=== PATIENT | male | born 1970 | race Caucasian/White ===

== ENCOUNTER 2017-11-03 13:55 | Outpatient (CLI) | payer OTHER ==
[2017-11-03 13:30] VITALS: BP 138/80
[2017-11-03] MEDS ORDERED: FUROSEMIDE40 MG ORAL (16:34)
[2017-11-03] MEDS ORDERED: SPIRONOLACTONE50 MG ORAL (16:34)
[2017-11-03] MEDS ORDERED: OMEPRAZOLE40 M1 ORAL (16:34)
[2017-11-03] MEDS ORDERED: insulin (16:34)
--- NOTE | 2017-11-04 13:29 | GI Initial Consult Note ---
History of Present Illness General Date patient seen: Nov 03, 2017 Time patient seen: 13:25 Referring physician: SCOTT Reason for Consultation: RECTAL BLEED Present Illness HPI 46 year old male patient with history of ETOH cirrhosis, hx of esophageal varices s/p banding and diabetes mellitus. He presents today with c/o of possible rectal bleed, noted dark stools. Denies any abdominal pain, N/V/D. Denies any unintentional weight loss or changes in dietary habits. No signs of abuse or neglect. Patient is not fall risk. No noted history of colonoscopy. Home Meds Reported Medications Spironolactone* (ALDACTONE*) 50 Mg Tablet, ORAL DAILY, TAB 11/03/17 [insulin ] No Conflict Check 11/03/17 Furosemide* (LASIX*) 40 Mg Tablet, ORAL DAILY, TAB 11/03/17 Omeprazole (OMEPRAZOLE) 40 Mg Capsule.dr, 40 MG ORAL DAILY, CAP 11/03/17 Med list reviewed/reconciled: Yes Allergies: Coded Allergies: No Known Allergies (Verified , 02/16/11) Patient History History Provided By: Patient, Medical Record PMH Narrative ETOH cirrhosis EV s/p banding DM GERD Past Surgical History: None Pertinent Family History: none Social History: Denies: smoking, alcohol use, drug use, other Review of Systems All Other Systems: negative except mentioned in HPI Physical Exam Vital Signs Date Time Temp Pulse Resp B/P (MAP) Pulse Ox O2 Delivery O2 Flow Rate FiO2 11/03/17 13:30 98.1 79 138/80 100 98.1 Sp02 EP Interpretation: reviewed, normal General Appearance: well appearing, no apparent distress, alert Head: normocephalic EENT: PERRL/EOMI, normal ENT inspection Neck: supple Respiratory: normal breath sounds, no respiratory distress Cardiovascular: normal rate Gastrointestinal: normal inspection, non tender, soft, normal bowel sounds, non -distended Rectal: deferred Genitourinary: deferred Musculoskeletal: normal inspection, back normal Neurologic: normal inspection, alert, oriented x3, responsive Psychiatric: normal inspection, judgement/insight normal, memory normal Skin: normal inspection, normal color, no rash, warm/dry, palpation normal, well hydrated Lymphatic: normal inspection, no adenopathy GI: Plan Problems: (1) Cirrhosis (2) Esophageal varices (3) GERD (gastroesophageal reflux disease) (4) Rectal bleed (5) Diabetes mellitus Plan EGD/colonoscopy to be scheduled pending prior authorization, will contact patient. - CLD & (Nulytely/Suprep/Movi-Prep) prep instructions given and acknowledged by patient. - NPO @ [place] day prior procedure explained. Seen with Dr. Prakash. Thank you for this patient referral. The patient was seen and examined at bedside and all new and available data was reviewed in the patients chart. I agree with the above findings, impression and plan. (Patient seen earlier today. Signature stamp does not reflect patient encounter time.). - MD Nanci AhujaSamara-Carlos FULFILLMENT ASSOCIATE Nov 04, 2017 13:29
== END 2017-11-03 14:25 | disposition home or self-care (01) ==
LOC: PAN 13:55
DX: K62.5 Hemorrhage of anus and rectum (principal); K70.30 Alcoholic cirrhosis of liver without ascites; I85.00 Esophageal varices without bleeding; K21.9 Gastro-esophageal reflux disease without esophagitis; E11.9 Type 2 diabetes mellitus without complications; Z98.84 Bariatric surgery status
CPT/HCPCS: 99202

== ENCOUNTER 2018-04-14 09:22 | Day surgery (SDC) | payer OTHER ==
[~2018-04-14] VITALS: Ht 165.1 cm; Wt 72.6 kg
[2018-04-14] VITALS (9 sets, daily range): BP systolic 106–143; BP diastolic 68–84
[~2018-04-14 09:22] MED LIST: FUROSEMIDE40 MG ORAL; OMEPRAZOLE40 M1 ORAL; SPIRONOLACTONE50 MG ORAL; insulin
[2018-04-14] MEDS ORDERED: basaglar SQ (10:17)
[2018-04-14] MEDS ORDERED: NOVOLOG100 UNITS1 SQ (10:17)
--- NOTE | 2018-04-14 11:09 | Pre-Procedure Note/Attestation ---
Pre-Procedure Note/Attestation Complete Prior to Procedure Planned Procedure: not applicable Procedure Narrative: egd/eus Indications for Procedure Pre-Operative Diagnosis: gastric nodule Attestation I attest that I discussed the nature of the procedure; its benefits; risks and complications; and alternatives (and the risks and benefits of such alternatives ), prior to the procedure, with the patient (or the patient's legal employee relations representative). I attest that, if there was a reasonable possibility of needing a blood transfusion, the patient (or the patient's legal employee relations representative) was given the [facility] standardized written summary, pursuant to the Rufus Duglas Blood Safety Act ([place] Health and Safety Code # 1645, as amended). I attest that I re-evaluated the patient just prior to the surgery and that there has been no change in the patient's H&P, except as documented below: Brayden Prakash MD Apr 14, 2018 11:09
--- NOTE | 2018-04-14 11:09 | Short Stay Surgery H&P ---
History of Present Illness History of Present Illness Chief Complaint see office consult note HPI Brown Moraes is a 47 year old male who was admitted on for Gastric Nodule Patient History Allergies: Coded Allergies: No Known Allergies (Verified , 04/14/18) Medication History Scheduled Furosemide* (Lasix*), Unknown Dose ORAL DAILY, (Reported) Insulin Aspart (Novolog Flexpen), 12 UNITS SQ BEFORE MEALS, (Reported) Omeprazole (Omeprazole), 40 MG ORAL DAILY, (Reported) Spironolactone* (Aldactone*), Unknown Dose ORAL DAILY, (Reported) [basaglar], 42 UNITS SQ BEDTIME, (Reported) Miscellaneous Medications [insulin ], (Reported) Physical Exam Vital Signs Last Vital Signs Date Time Temp Pulse Resp B/P (MAP) Pulse Ox O2 Delivery O2 Flow Rate FiO2 04/14/18 10:35 Room Air 04/14/18 10:07 98.7 70 18 143/84 100 Plan Attestation Are the patient's medical conditions optimized for surgery? Brayden Prakash MD Apr 14, 2018 11:09
[2018-04-14 11:13] LABS: HEMATOCRIT 43.5 % (42.0-52.0); HEMOGLOBIN 14.7 G/DL (14.2-18.0); MEAN CORPUSCULAR VOLUME 87 FL (80-99); PLATELET COUNT 41 K/UL (150-450); RED BLOOD COUNT 4.97 M/UL (4.70-6.10); RED CELL DISTRIBUTION WIDTH 14.1 % (11.6-14.8); WHITE BLOOD COUNT 2.6 K/UL (4.8-10.8)
[2018-04-14 11:24] LABS: ANION GAP 9 mmol/L (5-15); BLOOD UREA NITROGEN 10 mg/dL (7-18); CALCIUM 8.5 MG/DL (8.5-10.1); CARBON DIOXIDE 25 MMOL/L (21-32); CHLORIDE 108 MMOL/L (98-107); CREATININE 0.8 MG/DL (0.55-1.30); POTASSIUM 3.4 MMOL/L (3.5-5.1); SODIUM 142 MMOL/L (136-145)
[2018-04-14] MEDS ORDERED: Lidocaine 1% MPF 10mg/ml 5ml ONE (11:30)
[2018-04-14] MEDS ORDERED: Propofol 200mg/20ml IV ONE (11:30)
[2018-04-14] MEDS ORDERED: LR 1000ml ONE (11:30)
[2018-04-14 11:36] LABS: ALANINE AMINOTRANSFERASE 43 U/L (12-78); ALBUMIN 3.2 G/DL (3.4-5.0); ALBUMIN/GLOBULIN RATIO 0.9 (1.0-2.7); ALKALINE PHOSPHATASE 100 U/L (46-116); ASPARTATE AMINO TRANSFERASE 41 U/L (15-37); BILIRUBIN,TOTAL 2.5 MG/DL (0.2-1.0)
[2018-04-14 11:46] LABS: BILIRUBIN,DIRECT 0.6 MG/DL (0.0-0.3)
--- NOTE | 2018-04-14 12:08 | Immediate Post-Op Evaluation ---
Immediate Post-Op Evalulation Immediate Post-Op Evalulation Procedure: EGD/EUS Date of Evaluation: Apr 14, 2018 Time of Evaluation: 12:08 IV Fluids: 300 Blood Pressure Systolic: 117 Blood Pressure Diastolic: 62 Pulse Rate: 81 Respiratory Rate: 14 O2 Sat by Pulse Oximetry: 99 Temperature (Fahrenheit): 97.1 Nausea: No Vomiting: No Complications none Patient Status: awake, reacts, patent Hydration Status: adequate Drug: none Keke Whalen CRNA Apr 14, 2018 12:08
--- NOTE | 2018-04-14 12:11 | Anethesia Preoperative Eval ---
Anesthesia Pre-op PMH/ROS General Date of Evaluation: Apr 14, 2018 Time of Evaluation: 11:30 Anesthesiologist: ya ASA Score: ASA 3 Mallampati Score Class I : Soft palate, uvula, fauces, pillars visible Class II: Soft palate, uvula, fauces visible Class III: Soft palate, base of uvula visible Class IV: Only hard plate visible Mallampati Classification: Class III Surgeon: rayne Diagnosis: gastric nodule Surgical Procedure: EUS Anesthesia History: none Social History: alcohol use Family History: no anesthesia problems Allergies: Coded Allergies: No Known Allergies (Verified , 04/14/18) Medications: see eMAR Patient NPO?: Yes NPO Date: Apr 14, 2018 NPO Time: 00:01 Past Medical History Cardiovascular: Reports: HTN, CAD Pulmonary: Denies: asthma, COPD, MACIE, other Gastrointestinal/Genitourinary: Reports: GERD; Denies: CRI, ESRD, other Neurologic/Psychiatric: Denies: dementia, CVA, depression/anxiety, TIA, other Endocrine: Reports: DM; Denies: hypothyroidism, steroids, other HEENT: Denies: cataract (L), cataract (R), glaucoma, [place]Y (L), [place] (R), other Hematology/Immune: Reports: anemia Musculoskeletal/Integumentary: Denies: OA, RA, DJD, DDD, edema, other PMH Narrative: kidney stone PSxH Narrative: prior EGD Anesthesia Pre-op Phys. Exam Physician Exam Last Vital Signs Date Time Temp Pulse Resp B/P (MAP) Pulse Ox O2 Delivery O2 Flow Rate FiO2 04/14/18 10:35 Room Air 04/14/18 10:07 98.7 70 18 143/84 100 Constitutional: NAD Neurologic: CN 2-12 intact Cardiovascular: RRR Respiratory: CTA Gastrointestinal: S/NT/ND Airway Exam Mallampati Classification 2 Mallampati Score: Class III MO: full ROM: full Dentures: no upper, no lower Anesthesia Pre-op A/P Labs Hematology Test 04/14/18 11:00 White Blood Count 2.6 K/UL (4.8-10.8) L Red Blood Count 4.97 M/UL (4.70-6.10) Hemoglobin 14.7 G/DL (14.2-18.0) Hematocrit 43.5 % (42.0-52.0) Mean Corpuscular Volume 87 FL (80-99) Mean Corpuscular Hemoglobin 29.5 PG (27.0-31.0) Mean Corpuscular Hemoglobin Concent 33.7 G/DL (32.0-36.0) Red Cell Distribution Width 14.1 % (11.6-14.8) Platelet Count 41 K/UL (150-450) L Mean Platelet Volume 14.9 FL (6.5-10.1) H Neutrophils (%) (Auto) % (45.0-75.0) Lymphocytes (%) (Auto) % (20.0-45.0) Monocytes (%) (Auto) % (1.0-10.0) Eosinophils (%) (Auto) % (0.0-3.0) Basophils (%) (Auto) % (0.0-2.0) Differential Total Cells Counted 100 Neutrophils % (Manual) 71 % (45-75) Lymphocytes % (Manual) 22 % (20-45) Monocytes % (Manual) 5 % (1-10) Eosinophils % (Manual) 1 % (0-3) Basophils % (Manual) 1 % (0-2) Band Neutrophils 0 % (0-8) Platelet Estimate Decreased L Platelet Morphology Normal Chemistry Test 04/14/18 11:00 Sodium Level 142 MMOL/L (136-145) Potassium Level 3.4 MMOL/L (3.5-5.1) L Chloride Level 108 MMOL/L (98-107) H Carbon Dioxide Level 25 MMOL/L (21-32) Anion Gap 9 mmol/L (5-15) Blood Urea Nitrogen 10 mg/dL (7-18) Creatinine 0.8 MG/DL (0.55-1.30) Estimat Glomerular Filtration Rate > 60 mL/min (>60) Glucose Level 195 MG/DL (74-106) H Calcium Level 8.5 MG/DL (8.5-10.1) Total Bilirubin 2.5 MG/DL (0.2-1.0) H Direct Bilirubin 0.6 MG/DL (0.0-0.3) H Aspartate Amino Transf (AST/SGOT) 41 U/L (15-37) H Alanine Aminotransferase (ALT/SGPT) 43 U/L (12-78) Alkaline Phosphatase 100 U/L (46-116) Total Protein 6.7 G/DL (6.4-8.2) Albumin 3.2 G/DL (3.4-5.0) L Globulin 3.5 g/dL Albumin/Globulin Ratio 0.9 (1.0-2.7) L Studies Pre-op Studies: EKG Risk Assessment & Plan Assessment: c/o backpain due to kidneystones Plan: mac Status Change Before Surgery: No Pre-Antibiotics Drug: none Keke Whalen CRNA Apr 14, 2018 12:11
[2018-04-14] MEDS ORDERED: fentaNYL 100 mcg/2 mL IV PRN (12:30)
--- NOTE | 2018-04-14 12:39 | Endoscopy Procedure Note ---
Endoscopy Procedure Note General Indication for Procedure: gastric nodule Procedures Performed: EGD, other - EUS Operative Findings/Diagnosis: same Specimen: none Pt Tolerated Procedure Well: Yes Estimated Blood Loss: none Anesthesia Anesthesiologist: babs Anesthesia: MAC Inserted Devices Implant(s) used?: No GI Core Measures 50 yrs or older w/o bx or poly: Not Applicable 10yrs. F/U not recommended: Not Applicable Brayden Prakash MD Apr 14, 2018 12:39
[2018-04-14] MEDS ORDERED: Insulin Human Regular 100units/ml 3ml SUBQ ONE (14:00)
[2018-04-14] MEDS ORDERED: Insulin Human Regular 100units/ml 3ml SUBQ SCH (14:15)
--- NOTE | 2018-04-14 14:30 | NUR ---
NURSE NOTES: Patient discharged home via private vehicle escorted by his cousin, Demian. Prior to discharge, patient was instructed by bedside RN on symptoms of hypo and hyperglycemia. Patient verbalized understanding. Patient also states that he has diabetic testing supplies at home (glucometer, test strips) and is comfortable with how to operate them. Patient was instructed to be mindful of his blood sugar for the rest of the day and to seek immediate medical attention if aforementioned symptoms present and/or grossly abnormal result obtained via finger stick blood glucose testing. Patient again verbalized understanding. Patient discharged in stable condition, no obvious signs of distress and appropriate mental orientation.
--- NOTE | 2018-04-14 21:30 | Procedure Note ---
DATE OF PROCEDURE: 04/14/2018 SURGEON: Brayden Prakash M.D. PROCEDURE: Upper endoscopy and endoscopic ultrasound. ANESTHESIA: Per SILICATOR, Keke Tarrillion. INSTRUMENT: Olympus adult flexible upper endoscope and EUS scope. INDICATION: Gastric nodule. REASON FOR PROCEDURE: The procedure, risks, benefits, and possible consequences, including hemorrhage, aspiration, perforation and infection, and alternative treatments, were explained to the patient/legal guardian by Dr. Brayden Prakash and the patient/legal guardian understood and accepted these risks. PROCEDURE IN DETAIL: After informed consent was obtained and the patient was adequately sedated, the Olympus upper endoscope was advanced from the mouth into the second portion of the duodenum and retroflexion performed in the stomach. The patient had evidence of distal esophageal varices. In the stomach, there was portal hypertensive gastropathy. There was a small nodule in the prepyloric region in the antrum area along the lesser curvature at about 3 o'clock position. This nodule measured roughly about 5 mm, which is most probably what we found in prior endoscopy and EUS. At this time, the upper endoscope was retrieved. After endoscope was retrieved, an EUS scope was introduced. Started scanning at the antrum, there is obviously a small nodular dimension superficial, it does not go to the deeper layer of the stomach wall, suspicious for inflammatory-looking polyps. No biopsy was obtained it was already done by prior coroner forensic technician. There was no evidence of any obvious tumor seen. At this time, the scope was retrieved and procedure was terminated. SUMMARY OF FINDINGS: 1. Esophageal varices. 2. Portal hypertensive gastropathy. 3. Small nodule in the antrum of the stomach, most probably inflammatory polyp. RECOMMENDATIONS: No need for any further EUS evaluation of this lesion. The patient to be followed by his primary coroner forensic technician for repeat endoscopy and banding of esophageal varices. We will recommend repeat biopsy of this nodule in the next endoscopy. Brayden Prakash M.D. DR: HARDEEP JOB#: [id number] CC:
--- NOTE | 2018-04-18 15:39 | Cardiology Report ---
APPROVED REPORT EKG Measurement Heart [id number] Normal sinus rhythm Normal ECG
== END 2018-04-14 14:30 | disposition home or self-care (01) ==
LOC: GAS 09:22
DX: K31.89 Other diseases of stomach and duodenum (principal); K76.6 Portal hypertension; I85.00 Esophageal varices without bleeding; I10 Essential (primary) hypertension; I25.10 Atherosclerotic heart disease of native coronary artery without angina pectoris; K21.9 Gastro-esophageal reflux disease without esophagitis; E11.9 Type 2 diabetes mellitus without complications; D64.9 Anemia, unspecified
CPT/HCPCS: 36415; 43237; 80053; 82248; 82962; 85007; 85025; 93005; J1815; J2704; J3010; 94003; 94150